=== PATIENT | female | born 1990 | race African-American/Black ===

== ENCOUNTER 2021-03-13 11:40 | Emergency (ER) | payer OTHER ==
[2021-03-13 11:56] VITALS: BP 125/83; PULSE 100; TEMP 98.1; BMI 40.7
== END 2021-03-13 13:25 | disposition home or self-care (01) ==
LOC: JER 11:40 → JERFT 11:40
DX: M54.32 Sciatica, left side (principal)
CPT/HCPCS: 93971-TC; 99284-25